=== PATIENT | female | born 1955 | race Caucasian/White ===

== ENCOUNTER 2018-07-04 08:23 | Day surgery (SDC) | payer OTHER ==
[2018-07-01 12:13] VITALS: BMI 20.7
[2018-07-04] MEDS ORDERED: PROPOFOL 20 ML ONE (08:59)
[2018-07-04 09:46] VITALS: TEMP 97.9
[2018-07-04 10:31] VITALS: BP 102/53; PULSE 62
--- NOTE | 2018-07-08 17:58 | PATH ---
Surgical Pathology Report Patient Name: HERNANDO ABDALLA [facility]. Rec. #: [id number] /Age/Gender: 1955 (Age: 62) / F Account: [id number] [facility] Taken: 07/04/2018 Received: 07/04/2018 Reported: 07/08/2018 Physicians: Santos Flores M.D. Specimen(s) Received A: BX DUODENUM B: BX ANTRUM C: LEFT COLON Clinical History Rule out colon cancer, GERD Postoperative diagnosis: Gastritis, polyp Final Diagnosis A. DUODENUM, BIOPSY: DUODENAL MUCOSA WITHOUT SIGNIFICANT PATHOLOGIC FINDINGS. B. STOMACH, ANTRUM, BIOPSY: GASTRIC ANTRAL MUCOSA WITH MILD CHRONIC GASTRITIS. IMMUNOHISTOCHEMICAL STAIN FOR H. PYLORI IS NEGATIVE. C. COLON, LEFT, POLYP, BIOPSY: HYPERPLASTIC POLYP. Electronically Signed Sallie Ibrahim M.D. Gross Description A. Received in formalin, labeled "duodenum" are 2 coy, irregular portions of soft tissue measuring 0.5 and 0.6 cm. in greatest dimension. The specimens are submitted in toto in one cassette. B. Received in formalin, labeled "antrum" are 2 coy, irregular portions of soft tissue averaging 0.4 cm. in greatest dimension. The specimens are submitted in toto in one cassette. C. Received in formalin, labeled "polyp left colon" are 2 coy, irregular portions of soft tissue measuring 0.7 and 1.0 cm. in greatest dimension. The specimens are submitted in toto in one cassette. DL07/05/2018 saudi07/05/2018
== END 2018-07-04 10:15 | disposition home or self-care (01) ==
LOC: FASU-ENDO 08:23
PROVIDERS: ATTEND Internal Medicine Gastroenterology
PROC: 0DB68ZX Excision of Stomach, Via Natural or Artificial Opening Endoscopic, Diagnostic (ICD-10-PCS; 2018-07-04)
PROC: 0DBM8ZX Excision of Descending Colon, Via Natural or Artificial Opening Endoscopic, Diagnostic (ICD-10-PCS; 2018-07-04)
PROC: 0DB98ZX Excision of Duodenum, Via Natural or Artificial Opening Endoscopic, Diagnostic (ICD-10-PCS; principal; 2018-07-04 09:04)
DX: Z12.11 Encounter for screening for malignant neoplasm of colon (principal); K63.5 Polyp of colon; K29.50 Unspecified chronic gastritis without bleeding
CPT/HCPCS: 88305-TC; 88342-TC